=== PATIENT | male | born 1965 | race African-American/Black ===

== ENCOUNTER 2025-04-08 19:01 | Observation (INO) | payer OTHER ==
[2025-04-08 19:33] LABS: Basophils # (A) 0.04 10*3/uL (0.00-0.10); Basophils % (A) 0.7 %; Eosinophils # (A) 0.21 10*3/uL (0.04-0.35); Eosinophils % (A) 3.5 %; HCT 39.5 % (39.6-50.0); HGB 14.0 g/dL (13.0-17.0); Lymphocytes # (A) 2.44 10*3/uL (0.90-5.00); Lymphocytes % (A) 41.1 %; MCH 31.7 pg (27.0-32.0); MCHC 35.4 g/dL (32.0-37.0); MCV 89.6 fL (80.0-97.0); Monocytes # (A) 0.56 10*3/uL (0.20-1.00); Monocytes % (A) 9.4 %; Neutrophils # (A) 2.67 10*3/uL (1.80-7.70); Neutrophils % (A) 45.1 %; Platelet Count 153 10*3/uL (140-440); RBC 4.41 10*6/uL (4.40-5.60); RDW 12.1 % (11.5-14.5); WBC 5.93 10*3/uL (4.50-10.00)
[2025-04-08 19:46] LABS: INR 1.0 (<1.2); Partial Thromboplastin Time 29.5 sec (22.0-30.0); Prothrombin Time 10.7 sec (10.0-12.5)
[2025-04-08 19:51] LABS: ALT 20 U/L (4-49); AST 23 U/L (17-59); African American GFR (CKD) >90 (>60 ml/min/1.73 sqM); Albumin 4.2 g/dL (3.5-5.0); Alkaline Phosphatase 66 U/L (38-126); Anion Gap 10 mmol/L; Blood Urea Nitrogen 14 mg/dL (9-20); Calcium 9.3 mg/dL (8.4-10.2); Carbon Dioxide 24 mmol/L (22-30); Chloride 105 mmol/L (98-107); Glucose 92 mg/dL (74-99); Magnesium 1.8 mg/dL (1.6-2.3); Non-African American GFR(CKD) >90 (>60 ml/min/1.73 sqM); Potassium 4.3 mmol/L (3.5-5.1); Sodium 139 mmol/L (137-145); Total Protein 7.4 g/dL (6.3-8.2)
--- NOTE | 2025-04-08 20:17 | ED ---
General Adult HPI - General Chief complaint: Chest Pain Stated complaint: Chest Pain/[facility] transfer Time Seen by Provider: 04/08/25 19:07 Source: patient, EMS, RN notes reviewed, old records reviewed Mode of arrival: EMS Limitations: no limitations - History of Present Illness Initial comments: 60-year-old male presents for evaluation of chest pain. Patient was a transfer from [facility] for evaluation of chest pain and EKG changes. Patient is denying any chest pain at the time my evaluation. The patient had troponin checked at outside hospital and this was noted to be negative. He did have EKG changes and the initial care of this patient was coordinated through the on-call latin professor at [facility]. The patient was ultimately transferred for further cardiac evaluation. He denies fever. Denies cough. Denies chest pain or dyspnea. And he reports no prior history of CAD. - Related Data Allergies Allergy/AdvReac Type Severity Reaction Status Date / Time No Known Allergies Allergy Verified 04/08/25 19:10 Review of Systems ROS Statement: Those systems with pertinent positive or pertinent negative responses have been documented in the HPI. ROS Other: All systems not noted in ROS Statement are negative. Past Medical History Past Medical History: No Reported History Past Surgical History: No Surgical Hx Reported Past Psychological History: No Psychological Hx Reported Smoking Status: Former smoker Past Alcohol Use History: Rare Past Drug Use History: Cocaine, Marijuana General Exam Limitations: no limitations General appearance: alert, in no apparent distress Head exam: Present: atraumatic, normocephalic Eye exam: Present: normal appearance, PERRL ENT exam: Present: normal exam Neck exam: Present: normal inspection. Absent: tenderness, meningismus Respiratory exam: Present: normal lung sounds bilaterally. Absent: respiratory distress, wheezes Cardiovascular Exam: Present: regular rate, normal rhythm GI/Abdominal exam: Present: soft. Absent: distended, tenderness Extremities exam: Present: normal inspection, normal capillary refill Neurological exam: Present: alert, oriented X3, CN II-XII intact. Absent: motor sensory deficit Psychiatric exam: Present: normal affect, normal mood Skin exam: Present: warm, dry, intact Course Vital Signs 04/08/25 19:03 Temperature 98.8 F Pulse Rate 73 Respiratory 18 Rate Blood Pressure 140/98 O2 Sat by Pulse 97 Oximetry Medical Decision Making - Medical Decision Making Was pt. sent in by a medical professional or institution (MARIA M Maldonado, POST PRODUCTION ASSISTANT, urgent care, hospital, or assisted...) When possible be specific @Sent from [facility] for cardiac workup Did you speak to anyone other than the patient for history (EMS, parent, family, police, friend...)? What history was obtained from this source @ -No Did you review nursing and triage notes (agree or disagree)? Why? @ -I reviewed and agree with nursing and triage notes Were old charts reviewed (outside hosp., previous admission, EMS record, old EKG, old radiological studies, urgent care reports/EKG's, assisted records)? Report findings @ -No old charts were reviewed Differential Chest Pain: Stable Angina, Unstable Angina, STEMI, NSTEMI Aortic Dissection, Pneumothorax, Musculoskeletal, Esophageal Spasm GERD, Cholecystitis, Pancreatitis, Zoster, t his is not meant to be an all-inclusive list. EKG interpreted by me (3pts min.). @ -Sinus rhythm left anterior fascicular block, T wave inversion in V6, no ST segment elevation rate of 74, IL interval 188, QRS duration 113, QTc 398 X-rays interpreted by me (1pt min.). @ -None done CT interpreted by me (1pt min.). @ -None done U/S interpreted by me (1pt. min.). @ -None done What testing was considered but not performed or refused? (CT, X-rays, U/S, labs)? Why? @ -None What meds were considered but not given or refused? Why? @ -None Did you discuss the management of the patient with other professionals (professionals i.e. MARIA M Maldonado, POST PRODUCTION ASSISTANT, lab, RT, psych nurse, medical social consultant, party plan sales unit sales leader, teacher, bank compliance officer, comp field case manager)? Give summary @[facility], Dr. Williamson Was smoking cessation discussed for >3mins.? @ -No Was critical care preformed (if so, how long)? @ -No Were there social determinants of health that impacted care today? How? (Homelessness, low income, unemployed, alcoholism, drug addiction, transportation, low edu. Level, literacy, decrease access to med. care, [facility], rehab)? @ -No Was there de-escalation of care discussed even if they declined (Discuss DNR or withdrawal of care, Hospice)? DNR status @ -No What co-morbidities impacted this encounter? (DM, HTN, Smoking, COPD, CAD, Cancer, CVA, ARF, Chemo, Hep., AIDS, mental health diagnosis, sleep apnea, m orbid obesity)? @ -Hypertension Was patient admitted / discharged? Hospital course, mention meds given and route, prescriptions, significant lab abnormalities, going to OR and other pertinent info. @ -[60-year-old male transfer from outside hospital for chest pain evaluation. Patient is chest pain-free at the time my evaluation. He does have persistent EKG changes which are similar compared to previous. He had negative troponin at outside hospital and the troponin is again negative. Patient will be placed in observation for serial cardiac enzymes, cardiology consultation. Undiagnosed new problem with uncertain prognosis? @ -No Drug Therapy requiring intensive monitoring for toxicity (Heparin, Nitro, Insulin, Cardizem)? @ -No Were any procedures done? @ -No Diagnosis/symptom? @ -Chest pain rule out Acute, or Chronic, or Acute on Chronic? @ -Acute Uncomplicated (without systemic symptoms) or Complicated (systemic symptoms)? @ -Default Side effects of treatment? @ -No Exacerbation, Progression, or Severe Exacerbation? @ -No Poses a threat to life or bodily function? How? (Chest pain, USA, DE, pneumonia, PE, COPD, DKA, ARF, appy, cholecystitis, CVA, Diverticulitis, Homicidal, Suicidal, threat to staff... and all critical care pts) @ -Yes, ACS, cardiogenic shock, DE - Lab Data Result diagrams: 04/08/25 19:30 04/08/25 19:30 Lab Results 04/08/25 04/08/25 04/08/25 Range/Units 19:30 19:30 19:30 WBC 5.93 (4.50-10.00) 10*3/uL RBC 4.41 (4.40-5.60) 10*6/uL Hgb 14.0 (13.0-17.0) g/dL Hct 39.5 L (39.6-50.0) % MCV 89.6 (80.0-97.0) fL MCH 31.7 (27.0-32.0) pg MCHC 35.4 (32.0-37.0) g/dL Plt Count 153 (140-440) 10*3/uL MPV 9.9 (9.5-12.2) fL Immature Gran % (Auto) 0.2 % Neutrophils % 45.1 % Lymphocytes % 41.1 % Monocytes % 9.4 % Eosinophils % 3.5 % Basophils % 0.7 % Immature Gran # 0.01 (0.00-0.04) 10*3/uL Neutrophils # 2.67 (1.80-7.70) 10*3/uL Lymphocytes # 2.44 (0.90-5.00) 10*3/uL Monocytes # 0.56 (0.20-1.00) 10*3/uL Eosinophils # 0.21 (0.04-0.35) 10*3/uL Basophils # 0.04 (0.00-0.10) 10*3/uL PT 10.7 (10.0-12.5) sec INR 1.0 (<1.2) APTT 29.5 (22.0-30.0) sec Sodium 139 (137-145) mmol/L Potassium 4.3 (3.5-5.1) mmol/L Chloride 105 (98-107) mmol/L Carbon Dioxide 24 (22-30) mmol/L Anion Gap 10 mmol/L BUN 14 (9-20) mg/dL Creatinine 0.92 (0.66-1.25) mg/dL Est GFR (CKD-EPI)AfAm >90 (>60 ml/min/1.73 sqM) Est GFR (CKD-EPI)NonAf >90 (>60 ml/min/1.73 sqM) Glucose 92 (74-99) mg/dL Calcium 9.3 (8.4-10.2) mg/dL Magnesium 1.8 (1.6-2.3) mg/dL Total Bilirubin 0.5 (0.2-1.3) mg/dL AST 23 (17-59) U/L ALT 20 (4-49) U/L Alkaline Phosphatase 66 (38-126) U/L Troponin I (0.000-0.034) ng/mL Total Protein 7.4 (6.3-8.2) g/dL Albumin 4.2 (3.5-5.0) g/dL // Range/Units 19:30 WBC (4.50-10.00) 10*3/uL RBC (4.40-5.60) 10*6/uL Hgb (13.0-17.0) g/dL Hct (39.6-50.0) % MCV (80.0-97.0) fL MCH (27.0-32.0) pg MCHC (32.0-37.0) g/dL Plt Count (140-440) 10*3/uL MPV (9.5-12.2) fL Immature Gran % (Auto) % Neutrophils % % Lymphocytes % % Monocytes % % Eosinophils % % Basophils % % Immature Gran # (0.00-0.04) 10*3/uL Neutrophils # (1.80-7.70) 10*3/uL Lymphocytes # (0.90-5.00) 10*3/uL Monocytes # (0.20-1.00) 10*3/uL Eosinophils # (0.04-0.35) 10*3/uL Basophils # (0.00-0.10) 10*3/uL PT (10.0-12.5) sec INR (<1.2) APTT (22.0-30.0) sec Sodium (137-145) mmol/L Potassium (3.5-5.1) mmol/L Chloride (98-107) mmol/L Carbon Dioxide (22-30) mmol/L Anion Gap mmol/L BUN (9-20) mg/dL Creatinine (0.66-1.25) mg/dL Est GFR (CKD-EPI)AfAm (>60 ml/min/1.73 sqM) Est GFR (CKD-EPI)NonAf (>60 ml/min/1.73 sqM) Glucose (74-99) mg/dL Calcium (8.4-10.2) mg/dL Magnesium (1.6-2.3) mg/dL Total Bilirubin (0.2-1.3) mg/dL AST (17-59) U/L ALT (4-49) U/L Alkaline Phosphatase (38-126) U/L Troponin I <0.012 (0.000-0.034) ng/mL Total Protein (6.3-8.2) g/dL Albumin (3.5-5.0) g/dL Disposition Clinical Impression: Chest pain Disposition: ADMITTED IP TO THIS HOSP Condition: Stable Is patient prescribed a controlled substance at d/c from ED?: No Referrals: Jayesh Bailey DO [Primary Care Provider] - 1-2 days Time of Disposition: 21:17
[2025-04-08] MEDS ORDERED: ACETAMINOPHEN TAB 325 MG TAB PO PRN (21:13)
[2025-04-08] MEDS ORDERED: NALOXONE 0.4 MG/ML 1 ML VIAL IV PRN (21:13)
--- NOTE | 2025-04-09 02:47 | P.HPIM ---
History of Present Illness H&P Date: 04/08/25 Chief Complaint: chest pain Patient is a 60-year-old male with PMH of hypertension, and previous PA, is a transfer from [facility] for evaluation of chest pain. Patient is a prisoner, he was in the room along with 2 police officers at the time of the encounter. Patient started to have chest pain 2 days ago. He described the chest pain as nonreproducible substernal squeezing-like pain. No radiation to the jaw or the left arm. He stated that he had a shortness of breath along with the pain. Nothing improved his pain and made it worse. He was sent to [facility], and then transferred to [facility] for EKG changes. He stated that he has Hypertension and had multiple heart attacks in the past. Has a [id number] smoking history. In the ED, he denied having chest pain, shortness of breath, fever, cough, chills. His troponin negative x 2 At bedside, denied shortness of breath, abdominal pain, sick contact, fever, chills, muscle weakness, numbness or tingling, change in vision, or headaches. Labs WBC 5.93, Hgb 14, HCT 39.5, plt count 153 NA 139, K4.3, BUN 14, CR 0.92 Vitals T98.8F, HR 73, RR 18, BP 140/98, O2 sat 97% on RA ED documentation reviewed. Review of systems: Pertinent positives and negatives as discussed in HPI, a complete review of systems was performed and all other systems are negative. Physical examination: Vital signs reviewed General: non toxic, no distress, appears at stated age Derm: no unusual rashes/lesions, warm Head: atraumatic, normocephalic Eyes: EOMI, anicteric sclera Neck:, supple Mouth: no lip lesion, mucus membranes moist Cardiovascular: S1S2 reg, no murmur, positive dorsalis pedis pulse bilateral, no edema Lungs: Normal breathing effort, no rhonchi, no rales, no accessory muscle use Abdominal: soft, nontender to palpation, no guarding Ext: muscle strength 5 out of 5 in all 4 extremities grossly, no gross muscle atrophy Neuro: no gross focal neuro deficits Psych: Alert, oriented to person, place, and time Assessment/Plan: #. Acute chest pain rule out STEMI vs angina vs drug use - Cardiology consulted -appreciate recommendations - Troponin negative x 2 - Follow-up on echo - Follow-up on urine drug screen - Monitor for recurring symptoms #. Primary hypertension - Monitor blood pressure DVT prophylaxis: Lovenox 40 mg The patient is admitted with an anticipated less than 2 midnight stay for evaluation of chest pain CODE STATUS: Full code Discussed with: Dr. Quiroz Anticipated discharge place: Kavita Tran MD PGY-1 IM Dictation was produced using [employer] dictation software. please excuse any grammatical, word or spelling errors. Past Medical History Past Medical History: No Reported History History of Any Multi-Drug Resistant Organisms: None Reported Past Surgical History: No Surgical Hx Reported Past Psychological History: No Psychological Hx Reported Smoking Status: Former smoker Past Alcohol Use History: Rare Past Drug Use History: Cocaine, Marijuana Medications and Allergies Allergies Allergy/AdvReac Type Severity Reaction Status Date / Time No Known Allergies Allergy Verified 04/08/25 19:10 Physical Exam Vitals: Vital Signs Temp Pulse Pulse Resp BP BP Pulse Ox 04/09/25 01:22 97.8 F 79 17 152/85 98 04/08/25 23:16 97.7 F 70 18 147/79 98 04/08/25 23:09 88 18 138/74 98 04/08/25 21:10 87 18 121/77 98 04/08/25 19:03 98.8 F 73 18 140/98 97 Intake and Output 04/08/25 04/08/25 04/09/25 14:59 22:59 06:59 Other: Weight 97.522 kg Results CBC & Chem 7: 04/08/25 19:30 04/08/25 19:30 Labs: Abnormal Lab Results - Last 24 Hours (Table) 04/08/25 Range/Units 19:30 Hct 39.5 L (39.6-50.0) %
[2025-04-09 04:21] LABS: Basophils # (A) 0.04 10*3/uL (0.00-0.10); Basophils % (A) 0.8 %; Eosinophils # (A) 0.23 10*3/uL (0.04-0.35); Eosinophils % (A) 4.6 %; HCT 40.2 % (39.6-50.0); HGB 13.9 g/dL (13.0-17.0); Lymphocytes # (A) 2.24 10*3/uL (0.90-5.00); Lymphocytes % (A) 45.0 %; MCH 31.0 pg (27.0-32.0); MCHC 34.6 g/dL (32.0-37.0); MCV 89.5 fL (80.0-97.0); Monocytes # (A) 0.58 10*3/uL (0.20-1.00); Monocytes % (A) 11.6 %; Neutrophils # (A) 1.88 10*3/uL (1.80-7.70); Neutrophils % (A) 37.8 %; Platelet Count 151 10*3/uL (140-440); RBC 4.49 10*6/uL (4.40-5.60); RDW 12.1 % (11.5-14.5); WBC 4.98 10*3/uL (4.50-10.00)
[2025-04-09 04:33] LABS: African American GFR (CKD) >90 (>60 ml/min/1.73 sqM); Anion Gap 7 mmol/L; Blood Urea Nitrogen 14 mg/dL (9-20); Calcium 9.0 mg/dL (8.4-10.2); Carbon Dioxide 25 mmol/L (22-30); Chloride 106 mmol/L (98-107); Glucose 88 mg/dL (74-99); Non-African American GFR(CKD) 86 (>60 ml/min/1.73 sqM); Potassium 4.0 mmol/L (3.5-5.1); Sodium 138 mmol/L (137-145)
[2025-04-09 08:13] LABS: Cholesterol 248.00 mg/dL (0.00-200.00); HDL Cholesterol 40.60 mg/dL (40.00-60.00); LDL Cholesterol,Calculated 183.6 mg/dL (0.0-131.0); Triglycerides 119.00 mg/dL (0.00-149.00); VLDL Calculation 23.80 mg/dL (5.00-40.00)
[2025-04-09] MEDS: ASPIRIN 81 MG PO SCH (08:27)
[2025-04-09] MEDS: HEPARIN SODIUM,PORCINE 5,000 UNIT/ML 1 ML VIAL SQ SCH (08:27)
[2025-04-09] MEDS ORDERED: CAFFEINE CITRATE 60 MG/3 ML VIAL IV PRN (08:40)
[2025-04-09] MEDS ORDERED: REGADENOSON 0.4 MG/5 ML SYRINGE IV PRN (08:40)
[2025-04-09] MEDS ORDERED: AMINOPHYLLINE 500 MG/20 ML VIAL IV PRN (08:40)
[2025-04-09 08:46] VITALS: RESP 16; TEMP 98
--- NOTE | 2025-04-09 09:48 | P.CRDCN ---
History of Present Illness Consult date: 04/09/25 Consult reason: chest pain History of present illness: Addendum After reviewing the echo and the stress test it appears that patient has nonischemic cardiomyopathy with normal Lexiscan and abnormal ECG with a EF of 30%. Will start him on GDMT with lisinopril 20 mg, Farxiga 10, Aldactone 12.5, metoprolol succinate 25 mg daily Continue aspirin Lipitor and Zetia Recommend outpatient follow-up with cardiology. Recommend further up titration of GDMT within next [address] Powers This is a 60-year-old male with past medical history of hypertension, dyslipidemia, patient denies previous cardiac stent. He also has a history of tobacco use and dependence, daily alcohol use and history of cocaine use. Patient states that he had a stress test done in 2018. We have been asked to evaluate the patient for pain. Patient is here from [facility] with complaints of chest discomfort. He also states his hand is shaking he thinks he has Parkinson but has not been told this officially. Patient was initially seen at [facility] and was transferred due to EKG changes. Unknown if this is new or old. Patient denies cough, no fever or chills. No shortness of breath. At the time of this evaluation, chest pain has resolved. Blood pressure 149/88, heart rate 82, pulse ox 98% on room air. Discussed recommendations for stress testing and patient is agreeable to move forward with this. Patient is currently a smoker of 1/2 pack/day. He drinks a 24 ounce beer daily. -EKG: T wave inversion in V6. -Laboratory studies: CBC unremarkable. Electrolytes and renal function normal. Troponin negative x 3. Triglycerides 119, cholesterol 248, LDL 183. -Home cardiac medications: None listed. Review Of Systems: At the time of my exam: CONSTITUTIONAL: Denies fever or chills. HEENT: Denies blurred vision, vision changes, or eye pain. Denies hemoptysis CARDIOVASCULAR: Denies chest pain. Denies orthopnea. Denies PND. Denies palpi tations RESPIRATORY: Denies shortness of breath. GASTROINTESTINAL: Denies abdominal pain. Denies nausea or vomiting. HEMATOLOGIC: Denies bleeding disorders. GENITOURINARY: Denies any blood in urine. SKIN: Denies puritis. Denies rash. Physical examination: Gen: This is a 60-year-old black male in no acute distress. deputy probation officer is at bedside. VS: reviewed HEENT: Head is atraumatic, normocephalic. Pupils equal, round. Sclerae is anicteric. NECK: Supple. No JVD. LUNGS: Clear to auscultation. No wheezes or rhonchi. No intercostal retractions. HEART: Regular rate and rhythm. No murmur. ABDOMEN: Soft No tenderness. EXTREMITIES: No pedal edema. No calf tenderness. NEUROLOGICAL: Patient is awake, alert and oriented x3. Assessment: Atypical chest pain, acute coronary syndrome ruled out Abnormal EKG with T wave inversion in V6 Hypertension Hyperlipidemia Tobacco use and dependence Alcohol abuse History of cocaine use Plan: Patient has been started on aspirin 81 mg daily, atorvastatin 40 mg at bedtime, Zetia 10 mg daily, lisinopril 20 mg daily Schedule patient for Lexiscan stress test today N.p.o. Obtain 2-D echocardiogram and Doppler study to assess cardiac structure and func tion If stress test and echocardiogram are unremarkable, patient is cleared for discharge from cardiology. Thank you kindly for this consultation. Nurse practitioner note has been reviewed, I agree with documented findings and plan of care. Patient was seen and examined. Past Medical History Past Medical History: No Reported History History of Any Multi-Drug Resistant Organisms: None Reported Past Surgical History: No Surgical Hx Reported Past Psychological History: No Psychological Hx Reported Smoking Status: Former smoker Past Alcohol Use History: Rare Past Drug Use History: Cocaine, Marijuana Medications and Allergies Allergies Allergy/AdvReac Type Severity Reaction Status Date / Time No Known Allergies Allergy Verified 04/08/25 19:10 Physical Exam Vitals: Vital Signs Temp Pulse Pulse Resp BP BP Pulse Ox 04/09/25 01:22 97.8 F 79 17 152/85 98 04/08/25 23:16 97.7 F 70 18 147/79 98 04/08/25 23:09 88 18 138/74 98 04/08/25 21:10 87 18 121/77 98 04/08/25 19:03 98.8 F 73 18 140/98 97 Intake and Output 04/08/25 04/09/25 04/09/25 22:59 06:59 14:59 Other: Weight 97.522 kg Results 04/09/25 04:04 04/09/25 04:04 Cardiac Enzymes 04/08/25 04/08/25 04/08/25 Range/Units 19:30 19:30 22:57 AST 23 (17-59) U/L Troponin I <0.012 <0.012 (0.000-0.034) ng/mL 04/09/25 Range/Units 04:04 AST (17-59) U/L Troponin I <0.012 (0.000-0.034) ng/mL Coagulation 04/08/25 Range/Units 19:30 PT 10.7 (10.0-12.5) sec APTT 29.5 (22.0-30.0) sec Lipids 04/09/25 Range/Units 04:04 Triglycerides 119.00 (0.00-149.00) mg/dL Cholesterol 248.00 H (0.00-200.00) mg/dL HDL Cholesterol 40.60 (40.00-60.00) mg/dL Cholesterol/HDL Ratio 6.11 Ratio CBC 04/08/25 04/09/25 Range/Units 19:30 04:04 WBC 5.93 4.98 (4.50-10.00) 10*3/uL RBC 4.41 4.49 (4.40-5.60) 10*6/uL Hgb 14.0 13.9 (13.0-17.0) g/dL Hct 39.5 L 40.2 (39.6-50.0) % Plt Count 153 151 (140-440) 10*3/uL Comprehensive Metabolic Panel 04/08/25 04/09/25 Range/Units 19:30 04:04 Sodium 139 138 (137-145) mmol/L Potassium 4.3 4.0 (3.5-5.1) mmol/L Chloride 105 106 (98-107) mmol/L Carbon Dioxide 24 25 (22-30) mmol/L BUN 14 14 (9-20) mg/dL Creatinine 0.92 0.97 (0.66-1.25) mg/dL Glucose 92 88 (74-99) mg/dL Calcium 9.3 9.0 (8.4-10.2) mg/dL AST 23 (17-59) U/L ALT 20 (4-49) U/L Alkaline Phosphatase 66 (38-126) U/L Total Protein 7.4 (6.3-8.2) g/dL Albumin 4.2 (3.5-5.0) g/dL Current Medications Generic Name Dose Route Start Last Admin Trade Name Laury PRN Reason Stop Dose Admin Acetaminophen 650 mg 04/08/25 21:13 Acetaminophen Tab 325 Mg Tab PO Q6HR PRN Mild Pain or Fever > 100.5 Aspirin 81 mg 04/09/25 09:00 04/09/25 08:27 Aspirin 81 Mg PO 81 mg DAILY SHIRLEY Administration Atorvastatin Calcium 20 mg 04/09/25 21:00 Atorvastatin 20 Mg Tab PO HS SHIRLEY Heparin Sodium (Porcine) 5,000 unit 04/09/25 08:00 04/09/25 08:27 Heparin Sodium,Porcine 5,000 Unit/Ml 1 Ml Vial SQ 5,000 unit Q8HR SHIRLEY Administration Lisinopril 10 mg 04/09/25 09:00 04/09/25 08:27 Lisinopril 10 Mg Tab PO 10 mg DAILY SHIRLEY Administration Naloxone HCl 0.2 mg 04/08/25 21:13 Naloxone 0.4 Mg/Ml 1 Ml Vial IV Q2M PRN Opioid Reversal Intake and Output 04/08/25 04/09/25 04/09/25 22:59 06:59 14:59 Other: Weight 97.522 kg 04/09/25 04:04 04/09/25 04:04
--- NOTE | 2025-04-09 11:38 | CA ---
Transthoracic Echo Report Name: Micah Gottlieb Age: 60 Gender: M : 1965 Exam Date: 04/09/2025 07:27 Exam Location: [facility] Ht (in): 71 Wt (lb): 215 Ordering Physician: Kavita Tran MD Attending/Referring Phys: County Director Welfare Kelly Lutz RDCS Procedure CPT: Indications: Chest Pain Cardiac Hx: Technical Quality: Good Contrast 1: Total Dose (mL): Contrast 2: Total Dose (mL): MEASUREMENTS (Male / Female) Normal Values 2D ECHO LV Diastolic Diameter PLAX 5.7 cm 4.2 - 5.9 / 3.9 - 5.3 cm LV Systolic Diameter PLAX 5.1 cm IVS Diastolic Thickness 1.2 cm 0.6 - 1.0 / 0.6 - 0.9 cm LVPW Diastolic Thickness 1.4 cm 0.6 - 1.0 / 0.6 - 0.9 cm LV Relative Wall Thickness 0.5 RV Internal Dim ED PLAX 2.5 cm LVOT Diameter 2.1 cm LA Systolic Diameter LX 5.0 cm 3.0 - 4.0 / 2.7 - 3.8 cm LV Diastolic Volume MOD BP 116.2 cm??? 67 - 155 / 56 - 104 cm??? LV Systolic Volume MOD BP 74.1 cm??? 22 - 58 / 19 - 49 cm??? LV Ejection Fraction MOD BP 36.2 % >= 55 % LV Cardiac Index MOD BP 1865.7 cm???/min???m??? LV Diastolic Volume MOD 4C 133.6 cm??? LV Systolic Volume MOD 4C 86.1 cm??? LV Ejection Fraction MOD 4C 35.6 % LV Cardiac Index MOD 4C 2108.4 cm???/min???m??? LV Diastolic Length 4C 8.1 cm LV Systolic Length 4C 7.8 cm LV Diastolic Volume MOD 2C 99.1 cm??? LV Systolic Volume MOD 2C 63.0 cm??? LV Ejection Fraction MOD 2C 36.4 % LV Cardiac Index MOD 2C 1598.6 cm???/min???m??? LV Diastolic Length 2C 7.8 cm LV Systolic Length 2C 7.6 cm LA Volume 67.4 cm??? 18 - 58 / 22 - 52 cm??? LA Volume Index 30.2 cm???/m??? 16 - 28 cm???/m??? M-MODE Aortic Root Diameter MM 3.6 cm LA Systolic Diameter MM 4.0 cm LA Ao Ratio MM 1.1 AV Cusp Separation MM 2.1 cm DOPPLER AI Peak Velocity 358.5 cm/s AI Peak Gradient 51.4 mmHg AI Pressure Half Time 642.1 ms MV Area PHT 3.0 cm??? Mitral E Point Velocity 52.6 cm/s Mitral A Point Velocity 86.1 cm/s Mitral E to A Ratio 0.6 MV Deceleration Time 250.3 ms TR Peak Velocity 195.5 cm/s TR Peak Gradient 15.3 mmHg FINDINGS Left Ventricle Left ventricular ejection fraction is estimated at 30-35%. Mildly increased septal wall thickness. Moderately increased left ventricular systolic volume. Moderately decreased left ventricular ejection fraction. Moderately reduced global left ventricular systolic function. Mid to basal inferior wall hypokinesia Right Ventricle Mild right ventricular dilatation. Reduced right ventricular global systolic function. Right ventricular systolic pressure within normal limits. Right Atrium Moderate right atrial dilatation. Left Atrium Moderately increased left atrial diameter. Mitral Valve Structurally normal mitral valve. [id number] mitral regurgitation. No mitral stenosis. Aortic Valve Trileaflet aortic valve. Mild aortic regurgitation. No aortic stenosis. Tricuspid Valve Structurally normal tricuspid valve. Mild tricuspid regurgitation. No tricuspid stenosis. Pulmonic Valve Structurally normal pulmonic valve. Mild pulmonic regurgitation. No pulmonic stenosis. Pericardium No pericardial or pleural effusion. Aorta Aorta at upper limits of normal. CONCLUSIONS LVEF 30 to 35% Mild concentric LVH. Mid to basal inferior wall hypokinesia, Mildly dilated RV with reduced systolic function. Moderate biatrial dilatation Mild to moderate MR, mild aortic regurgitation, mild tricuspid regurgitation Previewed by: Dr Jamil Powers (Electronically Signed) Final Date: 09 April 2025 11:38
--- NOTE | 2025-04-09 11:39 | NM ---
EXAMINATION TYPE: NM stress lexiscan cardiolite DATE OF EXAM: 04/09/2025 COMPARISON: NONE CLINICAL INDICATION: Male, 60 years old with history of chest pain,, TECHNIQUE: After the intravenous administration of 9.3 mCi Tc 99m Sestamibi - Cardiolite resting SPE CT images acquired 45 minutes post injection. At peak stress 25.4 mCi Tc 99m Sestamibi - Stress images obtained 35 minutes post injection The patient was stressed with 0.4mg Lexiscan. FINDINGS: No fixed defects are evident. No reversible stress defects on Spect images. Global hypokinesia is present. Slightly greater hypokinesia of the anterior wall may be present. Ejection fraction is calculated to be 35 %. Normal greater than 50% IMPRESSION: 1. Global hypokinesia may be slightly greater along the anterior wall. There is a low ejection fracti on at 35%. 2. No stress-induced ischemic changes evident [facility], , 04/09/2025 11:37 AM
[2025-04-09 11:43] VITALS: BP 144/88; PULSE 83
[2025-04-09] MEDS: EZETIMIBE 10 MG TAB PO SCH (11:49)
[2025-04-09] MEDS ORDERED: FOLIC ACID 1 MG TAB PO SCH (13:00)
[2025-04-09] MEDS ORDERED: METOPROLOL SUCCINATE (ER) 25 MG TAB.ER.24H PO SCH (13:00)
[2025-04-09] MEDS ORDERED: MULTIVITAMINS, THERA 1 EACH TAB PO SCH (13:00)
[2025-04-09] MEDS ORDERED: THIAMINE 100 MG TAB PO SCH (13:00)
--- NOTE | 2025-04-09 13:21 | P.DS ---
Providers Date of admission: 04/08/25 21:14 Expected date of discharge: 04/09/25 Attending physician: Adalberto Quiroz MD Consults: 04/08/25 21:13 Consult Physician Routine Consulting Provider: Fabricio Grant Consult Reason/Comments: CP Do you want consulting provider notified?: Yes Primary care physician: Jayesh Bailey, Hospital Course: Discharge Diagnosis: Chest pain, acute coronary event ruled out. Hypertension Hyperlipidemia Hospital Course: Is a 60-year-old male with a past medical history of CAD with previous DE and hypertension. Patient is in custody of [employer] officers currently residing at [facility] for the last 2.5 months and he reports that he presented to [facility] with a chief complaint of chest pain and was later transferred to our facility to undergo cardiac workup.. Upon arrival to our facility, patient underwent evaluation in the emergency department. Vital signs upon arrival show blood pressure 147/79, heart rate 70, respiratory rate 18, temp 97.7 F, and SpO2 of 98% on room air. EKG completed showing normal sinus rhythm at 74 bpm with findings of left ventricular hypertrophy and nonspecific T wave abnormalities. Labs completed and reviewed. CBC unremarkable. Coagulation profile normal findings. BMP normal findings with blood glucose of 92. Calcium 9.3. Magnesium 1.8. Liver profile unremarkable. Troponin negative at less than 0.012. Patient admitted under services with consultation to cardiology. Troponins trended overnight all negative at less than 0.012 x 3 draws. Lipid profile showing elevated total cholesterol of 248.00 and LDL of 183.6. Echocardiogram was completed showing a reduced EF of 30 to 35% with mild concentric LVH and mild to basal inferior wall hypokinesis, mildly dilated RV with reduced systolic function, moderate biatrial dilation, and mild to moderate mitral regurgitation, mild aortic regurgitation, and tricuspid regurgitation. Patient was evaluated by cardiology and taken for Lexiscan stress test. Stress test showing global hypokinesia slightly greater along the anterior wall with a low ejection fraction at 35%, but negative showing no stress-induced ischemic changes evident. Patient free from any complaints at this time including headache, lightheadedness, dizziness, chest pain, palpitations, shortness of breath, or experiencing any numbness/tingling/weakness in his extremities. Discussed echocardiogram and Lexiscan stress test results in detail with cardiology, received notification from cardiac MANAGER VOICE that patient is cleared from cardiac perspective for discharge. Patient being discharged home on aspirin 81 mg daily, Farxiga 10 mg daily, folic acid 1 mg daily, atorvastatin 40 mg daily, metoprolol 25 mg daily, multivitamin daily, thiamine 100 mg daily, lisinopril 20 mg daily, Aldactone 12.5 mg daily, and Zetia 10 mg daily. 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 Physical exam: Vital signs reviewed and stable. General: Nontoxic, no distress and appears stated age. Derm: Skin warm and dry, normal coloration for ethnicity. Head: Atraumatic, normocephalic and symmetric. Eyes: EOM's intact, no lid lag, and anicteric sclera Mouth: no lip lesions, mucus membranes moist Cardiovascular: regular rate and rhythm with normal S1S2, systolic murmur, positive posterior tibial pulses bilaterally, and cap refill < 2 seconds. Lungs: Respirations even, regular, and unlabored on room air. Lungs CTA bilaterally, no rhonchi, no rales, no wheezing, and no accessory muscle usage. Abdominal: soft, nontender to palpation, no guarding, no appreciable organomega ly Ext: ROM intact. No gross muscle atrophy, no edema, no contractures Neuro: Speech clear, face symmetrical and CN II-XII grossly intact with no noted focal neuro deficits Psych: Alert and oriented to person, place, time, and situation. Appropriate and pleasant affect. A total of 32 minutes of time were spent preparing this complex discharge summary. Pt was discharged on 04/09/2025 at 1:07 PM. Patient was seen independently by Nurse Practitioner. This document was prepared using [employer] dictation software. Please allow for errors in global chief creative officer while rare they do occur. Darrin Yousif MANAGER VOICE rendered care for this patient independently, reviewed the findings and plan as documented in the note above. I did not physically speak with or examine the patient on this date. Patient Condition at Discharge: Stable Plan - Discharge Summary New Discharge Prescriptions: New Aspirin 81 mg PO DAILY #30 tab Dapagliflozin Propanediol [Farxiga] 10 mg PO DAILY #30 tab Folic Acid 1 mg PO DAILY #30 tab Atorvastatin [Lipitor] 40 mg PO HS 30 Days #30 tab Multivitamins, Thera [Multivitamin (formulary)] 1 each PO DAILY #30 tab Metoprolol Succinate (ER) [Toprol XL] 25 mg PO DAILY #30 tab Thiamine [Vitamin B-1] 100 mg PO DAILY #30 tab lisinopriL [Zestril] 20 mg PO DAILY #30 tab Spironolactone [Aldactone] 12.5 mg PO DAILY #30 tab Ezetimibe [Zetia] 10 mg PO DAILY 30 Days #30 tab Discharge Medication List Aspirin 81 mg PO DAILY #30 tab 04/09/25 [Rx] Atorvastatin [Lipitor] 40 mg PO HS 30 Days #30 tab 04/09/25 [Rx] Dapagliflozin Propanediol [Farxiga] 10 mg PO DAILY #30 tab 04/09/25 [Rx] Ezetimibe [Zetia] 10 mg PO DAILY 30 Days #30 tab 04/09/25 [Rx] Folic Acid 1 mg PO DAILY #30 tab 04/09/25 [Rx] Metoprolol Succinate (ER) [Toprol XL] 25 mg PO DAILY #30 tab 04/09/25 [Rx] Multivitamins, Thera [Multivitamin (formulary)] 1 each PO DAILY #30 tab 04/09/25 [Rx] Spironolactone [Aldactone] 12.5 mg PO DAILY #30 tab 04/09/25 [Rx] Thiamine [Vitamin B-1] 100 mg PO DAILY #30 tab 04/09/25 [Rx] lisinopriL [Zestril] 20 mg PO DAILY #30 tab 04/09/25 [Rx] Follow up Appointment(s)/Referral(s): Jayesh Bailey DO [Primary Care Provider] - 1-2 days Jamil Powers MD [Medical Doctor] - 1 Week Activity/Diet/Wound Care/Special Instructions: Patient medically optimized for discharge into custody of [employer] officers. Activity: As tolerated. Take breaks as needed. Diet: Heart healthy and carb consistent diet. Avoid salts, or foods with hidden salts such as canned or boxed foods and frozen dinners. Extra salt makes your heart work harder and traps the fluid in your body for longer. Special Instructions: Take all of your medications as directed and remember to keep all of your doctor's appointments and follow-up as needed. Thank you for allowing us to participate in your care, it was truly a pleasure having you for our patient!!!
[2025-04-09 18:29] LABS: Urine Alcohol Negative (Negative); Urine Barbiturate Negative (Negative)
--- NOTE | 2025-04-09 20:31 | CA ---
Lexiscan Nuclear Stress Test Report Name: Micah Gottlieb Exam Date: 04/09/2025 10:33 Exam Location: Center Stress Ht (in): 71 Wt (lb): 215 BSA: 2.17 Ordering Phys: Bertha Murphy Referring Phys: MEAGHAN Technologist: Brett Burrell Age: 60 Gender: M : 1965 Procedure CPT: Indications: Reflex order-Stress test ICD-10 Codes: Patient History: Medications: SEE CHART Meds past 24 hrs: Pretest Chest Pain: STRESS TEST Lexiscan Protocol Exercise Duration (min:sec): 01:[address] Depressions (mm): Angina Score: Dexter Score: Resting HR (bpm): 77 Peak HR (bpm): 101 Resting BP (mmHg): 131 / 73 Peak BP (mmHg): 103 / 72 MPHR: 162 Target HR: 138 % MPHR: 62 METS: 1.0 Total Dose: Peak Dose: Atropine: Double Product: 56183 BP Response: Stress Termination: INFUSION COMPLETE Stress Symptoms: NO SYMPTOMS Stress Summary: ECG ANALYSIS Resting ECG: Stress ECG: CONCLUSIONS RESTING EKG: Normal sinus rhythm with T wave inversions in inferolateral leads Patient recieved IV infusion of Lexiscan 0.4mg and at peak infusion STRESS EKG showed: Nondiagnostic because of resting ST changes ARRYTHMIAS: [No ectopic rhythms or sustained arrythmias] CONCLUSION: 1. Normal hemodynamic and clinical response to Lexiscan infusion. 2. ECG is nondiagnostic for ischemia because of resting changes Please refer to the nuclear imaging portion of this stress test for complete interpretation of the study. Dr Jamil Powers (Electronically Signed) Final Date: 09 April 2025 20:30
[2025-04-09] MEDS ORDERED: ATORVASTATIN 20 MG TAB PO SCH (21:00)
[2025-04-09] MEDS ORDERED: ATORVASTATIN 40 MG TAB PO SCH (21:00)
[2025-04-10] MEDS ORDERED: DAPAGLIFLOZIN PROPANEDIOL 10 MG TABLET PO SCH (09:00)
[2025-04-10] MEDS ORDERED: SPIRONOLACTONE 25 MG TAB PO SCH (09:00)
== END 2025-04-09 13:30 ==
LOC: EC 19:01 → 1SOBS 21:14
PROVIDERS: ADMIT Internal Medicine; ATTEND Internal Medicine
DX: R07.89 Other chest pain (principal); R94.31 Abnormal electrocardiogram [ECG] [EKG]; I11.9 Hypertensive heart disease without heart failure; I42.8 Other cardiomyopathies; I08.3 Combined rheumatic disorders of mitral, aortic and tricuspid valves; I44.4 Left anterior fascicular block; E78.5 Hyperlipidemia, unspecified; F10.10 Alcohol abuse, uncomplicated; I25.2 Old myocardial infarction; F17.210 Nicotine dependence, cigarettes, uncomplicated; Z87.898 Personal history of other specified conditions
CPT/HCPCS: 96372; 99285; 36415; 93005; 93017; 93306; 80061; 80053; 80048; 83735; 84484 ×2; 85025 ×2; 85610; 85730; 80306; 83036; 78452; G0378 ×2; A9500; J1644; J2785